=== PATIENT | male | born 1980 | race Caucasian/White ===

== ENCOUNTER 2018-01-20 07:53 | Inpatient (IN) | payer SELFPAY ==
[~2018-01-20] VITALS: Ht 182.9 cm; Wt 76.7 kg
[2018-01-20] MEDS ORDERED: SODIUM CHLORIDE 0.9% 1,000 ML IV ONE (08:24)
[2018-01-20 09:06] LABS: BASOPHILS % 0.6 % (0.0-2.0); EOSINOPHILS % 5.6 % (0.0-5.0); HEMATOCRIT. 50.1 % (42.0-52.0); HEMOGLOBIN. 16.9 g/dL (14.0-18.0); LYMPHOCYTES % 19.6 % (20.0-50.0); MEAN CORPUSCULAR HEMOGLOBIN 29.4 pg (28.0-32.0); MEAN CORPUSCULAR VOLUME 87.3 fL (80.0-94.0); MEAN PLATELET VOLUME 7.9 fl (7.4-10.4); MONOCYTES % 7.2 % (2.0-8.0); PLATELET 292 x1000/uL (130-400); RED BLOOD CELL COUNT 5.74 mill/uL (4.7-6.1); RED CELL DISTRIBUTION WIDTH 13.3 % (11.6-14.6)
[2018-01-20 09:18] LABS: CHLORIDE 108 mEq/L (98-107); ETHANOL BLOOD < 10 mg/dL
[2018-01-20 09:21] LABS: D-DIMER < 0.19 mg/L FEU (<0.50); PARTIAL THROMBOPLASTIN TIME 26.4 sec (23.4-31.0); PROTHROMBIN TIME 10.1 sec (9.4-11.6)
[2018-01-20 09:25] LABS: CREATINE KINASE 230 IU/L (39-308); TROPONIN I < 0.02 ng/mL (0.00-0.04)
[2018-01-20 09:30] LABS: CREATINE KINASE MB FRACTION 2.9 ng/mL (0.5-3.6)
[2018-01-20] MEDS ORDERED: ONDANSETRON HCL 4MG/2ML VIAL IV STA (10:22)
[2018-01-20] MEDS ORDERED: ASPIRIN 81MG TABLET PO STA (10:22)
[2018-01-20] MEDS ORDERED: MORPHINE SULFATE 4 MG/ML CPJ (NOT FOR IM USE) IV STA (10:22)
[2018-01-20] MEDS ORDERED: NITROGLYCERIN OINT 1GM/INCH UDPKT TD STA (10:22)
[2018-01-20 12:00] VITALS: BP_SYST 119; BP_DIAS 73; BP_DIAS 93
[2018-01-20] MEDS ORDERED: LORAZEPAM 0.5MG TABLET PO PRN (12:45)
[2018-01-20] MEDS ORDERED: NA PHOS,M-B/NA PHOS,DI-BA ENEMA 118ML PR PRN (12:45)
[2018-01-20] MEDS ORDERED: KETOROLAC 30MG/ML VIAL IV PRN (12:45)
[2018-01-20] MEDS ORDERED: IPRATROPIUM/ALBUTEROL 0.5-3(2.5)MG/3ML NEB INH PRN (12:45)
[2018-01-20] MEDS ORDERED: NITROGLYCERIN 0.4MG TABLET SL SL PRN (12:45)
[2018-01-20] MEDS ORDERED: ONDANSETRON HCL 4MG/2ML VIAL IV PRN (12:45)
[2018-01-20] MEDS ORDERED: DOCUSATE SODIUM 100MG CAPSULE PO PRN (12:45)
[2018-01-20] MEDS ORDERED: GUAIFENESIN 200MG/10ML SUGAR FREE UDC PO PRN (12:45)
[2018-01-20] MEDS ORDERED: CLONIDINE 0.1MG TABLET PO PRN (12:45)
[2018-01-20] MEDS ORDERED: DIPHENHYDRAMINE 50MG/ML VIAL IV PRN (12:45)
[2018-01-20] MEDS ORDERED: MAGNESIUM/ALUMINUM HYDROXIDE/SIMETHICONE 30ML UDC PO PRN (12:45)
[2018-01-20] MEDS: PANTOPRAZOLE SODIUM 40 MG/VIAL IV SCH (13:24)
[2018-01-20] MEDS: ACETAMINOPHEN 325MG TABLET PO PRN ×2 (13:25→21:26)
[2018-01-20] MEDS: ENOXAPARIN 40MG/0.4ML SYR SUBCUT SCH (13:25)
[2018-01-20] MEDS: METOPROLOL TARTRATE 25MG TABLET PO SCH ×2 (13:25→20:17)
[2018-01-20] MEDS ORDERED: PNEUMOCOCCAL 23-VAL P-SAC VAC 0.5 ML IM ONE (14:45)
[2018-01-20 16:00] VITALS: BP 126/79
[2018-01-20 16:14] LABS: CREATINE KINASE 157 IU/L (39-308); CREATINE KINASE MB FRACTION 2.2 ng/mL (0.5-3.6); TROPONIN I < 0.02 ng/mL (0.00-0.04)
[2018-01-20] MEDS ORDERED: ZOLPIDEM TARTRATE 5MG TABLET PO PRN (19:00)
[2018-01-20 20:00] VITALS: BP 114/75
[2018-01-20 23:17] LABS: CREATINE KINASE 131 IU/L (39-308); CREATINE KINASE MB FRACTION 1.7 ng/mL (0.5-3.6); TROPONIN I < 0.02 ng/mL (0.00-0.04)
[2018-01-21] VITALS: BP 116/86
[2018-01-21 04:00] VITALS: BP 116/80
[2018-01-21 08:00] VITALS: BP 118/78
[2018-01-21 08:21] LABS: *AMPHETAMINES SCREEN URINE PRESUMTIVE POSITIVE (NEGATIVE); *BARBITURATES SCREEN URINE NEGATIVE (NEGATIVE); *BENZODIAZEPINES SCREEN URINE NEGATIVE (NEGATIVE); *COCAINE SCREEN URINE NEGATIVE (NEGATIVE); CANNABINOID URINE SCREEN PRESUMTIVE POSITIVE (NEGATIVE); METHADONE URINE SCREEN NEGATIVE (NEGATIVE); OPIATES URINE SCREEN PRESUMTIVE POSITIVE (NEGATIVE); PHENCYCLIDINE URINE SCREEN NEGATIVE (NEGATIVE)
[2018-01-21] MEDS: METOPROLOL TARTRATE 25MG TABLET PO SCH (08:59)
[2018-01-21] MEDS: ENOXAPARIN 40MG/0.4ML SYR SUBCUT SCH (08:59)
[2018-01-21] MEDS: ACETAMINOPHEN 325MG TABLET PO PRN (09:00)
[2018-01-21] MEDS ORDERED: ASPIRIN 325MG EC TABLET PO SCH (09:00)
[2018-01-21] MEDS: PANTOPRAZOLE SODIUM 40 MG/VIAL IV SCH (09:08)
[2018-01-21 10:00] VITALS: BP 119/80
[2018-01-21 11:03] VITALS: BP 110/78
== END 2018-01-21 11:20 | disposition home or self-care (01) | DRG 203 ==
LOC: ER 07:53 → 5WST 10:14 → EDBEDREQ 10:17 → ENRESERV 10:59
PROVIDERS: ADMIT Internal Medicine; ATTEND Internal Medicine
DX: R07.89 Other chest pain (principal); I10 Essential (primary) hypertension; F15.10 Other stimulant abuse, uncomplicated; F17.210 Nicotine dependence, cigarettes, uncomplicated; Z76.5 Malingerer [conscious simulation]; Z88.8 Allergy status to other drugs, medicaments and biological substances
CPT/HCPCS: 36415; 70450; 71045; 73030; 73130; 80053; 80061; 80305; 82550; 82553; 83036; 83690; 83880; 84443; 84484; 85025; 85379; 85610; 85730; 90732; 93005; 93970; 96361; 96374; 96375; 99291; A4565; C9113; G0482; J1650; J2270; J2405; J7030; J7040